=== PATIENT | female | born 1960 | race African-American/Black ===

== ENCOUNTER 2017-05-03 16:19 | Outpatient (CLI) | payer BC, MEDICARE ==
[2017-05-03 16:50] LABS: ALT (SGPT) 33 U/L (8-55); AST (SGOT) 20 U/L (5-34); Alkaline Phosphatase 70 U/L (40-150); Anion Gap 15 mmol/L (10-20); BUN (Urea Nitrogen) 23 mg/dL (9.8-20.1); Bilirubin, Total 0.3 mg/dL (0.2-1.2); Calc. Creatinine Clearance 0 mL/min (70-130); Calcium 9.9 mg/dL (7.8-10.44); Carbon Dioxide 28 mmol/L (22-29); Chloride 104 mmol/L (98-107); Estimated GFR-MDRD 45; Lipase 16 U/L (8-78); Protein, Total 7.4 g/dL (6.0-8.3)
[2017-05-03 17:03] LABS: Bilirubin Small (Negative); Blood, Urine Trace (Negative); Glucose, Urine (Dipstick) Negative (Negative); Ketone, Urine Trace mg/dL (Negative); Nitrite Negative (Negative); Protein, Urine (Dipstick) 100 mg/dL (Neg-Trace); Urobilinogen 0.2 mg/dL (0.2-1.0)
[2017-05-03 17:38] LABS: Band 1 % (5-11); Mean Platelet Volume 9.1 fL (7.4-10.4); Neutrophil 48 % (42-75); Reactive Lymphocytes 2 % (0-10); Red Blood Cell (RBC) Count 4.97 mill/uL (4.20-5.40); White Blood Cell (WBC) Count 4.5 thou/uL (4.8-10.8)
[2017-05-03 17:40] LABS: Bacteria/HPF 2+ HPF (None Seen); RBC/HPF 0-3 HPF (0-3); Squamous Epithelial 21-50 HPF (0-3)
--- NOTE | 2017-05-03 18:48 | RAD ---
THORACIC SPINE SERIES THREE VIEWS 05/03/17 HISTORY: Back pain. Vertebral bodies maintain normal height. There is some osteophytic changes in the mid thoracic spine region. Pedicles appear intact. Minimal arthritic changes of the spine. POS: AMARILYS
--- NOTE | 2017-05-03 19:39 | RAD ---
FIVE VIEWS LUMBAR SPINE 05/03/17 HISTORY: Mid back pain radiating to stomach for one week. FINDINGS: There are five nonribbearing lumbar type vertebral bodies. Scattered osteophytes are seen within the lumbar spine. There is mild narrowing of the L4-5 intervertebral disc space. Vertebral body heights a re within normal limits and there is no fracture or subluxation seen. Vascular calcification seen in the abdominal aorta. Surgical clips overlie the right upper quadrant. IMPRESSION: Mild degenerative changes in the lower lumbar spine. POS: AMARILYS
== END 2017-05-03 16:20 | disposition home or self-care (01) ==
LOC: SCSRAD 16:19
PROVIDERS: ATTEND Internal Medicine
DX: K30 Functional dyspepsia (principal); R35.0 Frequency of micturition; R10.84 Generalized abdominal pain; R13.10 Dysphagia, unspecified; M51.36 Other intervertebral disc degeneration, lumbar region; M54.5 Low back pain; M19.90 Unspecified osteoarthritis, unspecified site
CPT/HCPCS: 36415; 72072; 72110; 80053; 81003; 81015; 83690; 85007; 85027; 85652; 86140; 87086

== ENCOUNTER 2017-11-27 10:47 | Outpatient (CLI) | payer BC, MEDICARE | END 2017-11-27 10:48 | disposition home or self-care (01) | LOC: BICMAMMO 10:47 | PROVIDERS: ATTEND Internal Medicine | DX: Z12.31 Encounter for screening mammogram for malignant neoplasm of breast (principal); R92.1 Mammographic calcification found on diagnostic imaging of breast; Z80.3 Family history of malignant neoplasm of breast | CPT/HCPCS: 77063; 77067 ==

== ENCOUNTER 2018-12-19 13:13 | Outpatient (CLI) | payer BC, MEDICARE ==
--- NOTE | 2018-12-22 08:10 | MMO ---
Bilateral MAMMO Bilat Screen [facility]. CLINICAL HISTORY: Patient is 58 years old and is seen for screening. The patient has the following family history of breast cancer: sister, at age 30, malignant (generic). The patient has no personal history of cancer. VIEWS: The views performed were: bilateral craniocaudal and bilateral mediolateral oblique. FILMS COMPARED: The present examination has been compared to prior imaging studies performed at [facility] on 11/19/2014, 11/21/2015, 11/23/2016 and 11/27/2017. This study has been interpreted with the assistance of computer-aided detection. MAMMOGRAM FINDINGS: The breasts are extremely dense, which may lower the sensitivity of mammography. There are no suspicious masses, suspicious calcifications, or new areas of architectural distortion. IMPRESSION: THERE IS NO MAMMOGRAPHIC EVIDENCE OF MALIGNANCY. A ROUTINE FOLLOW-UP MAMMOGRAM IN 1 YEAR IS RECOMMENDED. ACR BI-RADS Category 1 - Negative MAMMOGRAPHY NOTE: 1. A negative mammogram report should not delay a biopsy if a dominant of clinically suspicious mass is present. 2. Approximately 10% to 15% of breast cancers are not detected by mammography. 3. Adenosis and dense breasts may obscure an underlying neoplasm. Reported by: MARYA DAHL MD Electonically Signed: [id number]
== END 2018-12-19 13:14 | disposition home or self-care (01) ==
LOC: SCSMAMMO 13:13
PROVIDERS: ATTEND Internal Medicine
DX: Z12.31 Encounter for screening mammogram for malignant neoplasm of breast (principal); Z80.3 Family history of malignant neoplasm of breast
CPT/HCPCS: 77067

== ENCOUNTER 2021-05-29 08:53 | Outpatient (CLI) | payer MEDICARE | END 2021-05-29 08:54 | disposition home or self-care (01) | LOC: BICCT 08:53 | PROVIDERS: ATTEND Physician Assistant Medical | DX: R63.4 Abnormal weight loss (principal); N28.1 Cyst of kidney, acquired; N28.89 Other specified disorders of kidney and ureter; K76.89 Other specified diseases of liver; I70.90 Unspecified atherosclerosis; Z90.89 Acquired absence of other organs | CPT/HCPCS: 74177; 82565 ==